=== PATIENT | female | born 1935 | race Caucasian/White ===

== ENCOUNTER 2017-12-05 10:15 | Emergency (ER) | payer MEDICARE ==
[~2017-12-05] VITALS: Ht 157.5 cm; Wt 49.9 kg
[2017-12-05] MEDS ORDERED: PREDNISONE 20 MG TAB PO ONE (10:30)
--- NOTE | 2017-12-05 11:20 | Diagnostic Imaging Report ---
PROCEDURE:X-RAY RIGHT WRIST, COMPLETE COMPARISON:None. INDICATIONS:SWOLLON RT. WRIST, 5TH DIGIT IS LIMP FINDINGS: Extensive degenerative joint space narrowing, subchondral sclerosis, and subchondral cystic changes throughout the entire carpus, to include the distal radius, ulna, and metacarpal bases of the second through fifth digits. No acute, displaced fracture or dislocation. Soft tissues are unremarkable. Background diffuse osteopenia. CONCLUSION: No acute osseous abnormality. Extensive arthritic changes of the carpus as described above. Dictated by: Ashish Montoya M.D. on 12/05/2017 at 11:20 Electronically approved by: Ashish Montoya M.D. on 12/05/2017 at 11:20
[2017-12-05] MEDS ORDERED: MOBIC15 MG PO (12:10)
[2017-12-05] MEDS ORDERED: PREDNISONE20 MG PO (12:10)
[2017-12-05 12:11] VITALS: BP 148/75
== END 2017-12-05 12:18 | disposition home or self-care (01) ==
LOC: ER 10:15
DX: M19.031 Primary osteoarthritis, right wrist (principal); M54.10 Radiculopathy, site unspecified
CPT/HCPCS: 99283

== ENCOUNTER 2018-03-12 04:29 | Observation (INO) | payer MEDICARE ==
[~2018-03-12] VITALS: Ht 157.5 cm; Wt 53.2 kg
[2018-03-12] VITALS (7 sets, daily range): BP systolic 121–156; BP diastolic 72–85
[~2018-03-12 04:29] MED LIST: MOBIC15 MG PO; PREDNISONE20 MG PO
[2018-03-12] MEDS ORDERED: ASPIRIN 81 MG CHEW TAB PO ONE (05:00)
[2018-03-12] MEDS ORDERED: KETOROLAC TROMETHAMINE 30 MG/ML VIAL IV STA (05:09)
[2018-03-12] MEDS ORDERED: NITROGLYCERIN 0.4 MG SUBL SL PRN (06:15)
[2018-03-12] MEDS ORDERED: MORPHINE SULFATE 2 MG/ML SYR IV PRN (06:15)
[2018-03-12] MEDS ORDERED: ONDANSETRON HCL INJ 2 MG/ML VIAL IV PRN (06:15)
[2018-03-12] MEDS ORDERED: SODIUM CHLORIDE FLUSH 10 ML SYR INJ PRN (06:15)
[2018-03-12] MEDS ORDERED: ONDANSETRON HCL 4 MG ORAL DISINTEGRATING TAB SL PRN (07:45)
--- NOTE | 2018-03-12 07:46 | History and Physical ---
PRIMARY CARE PHYSICIAN: None. CHIEF COMPLAINT: Left-sided chest pain. HISTORY OF PRESENT ILLNESS: This 82-year-old woman, with a history of uterine cancer and hypertension, is now developing left-sided chest pain under the breast region that has been ongoing intermittently for the whole day yesterday. Therefore, she went to the urgent care facility and then was sent here for further evaluation and management. She denies any shortness of breath or dizziness. Denies any vision changes. She has not had a stress test in the past. PAST MEDICAL HISTORY 1. Uterine cancer about 15 years ago, status post hysterectomy. 2. Hypertension. PAST SURGICAL HISTORY: Right knee, back surgery, cervical fracture. ALLERGIES: PER ELECTRONIC MEDICAL RECORD. FAMILY HISTORY AND SOCIAL HISTORY: The patient is . Occasional alcohol. No cigarettes or illicits. MEDICATIONS: Per electronic medical record. REVIEW OF SYSTEMS: Denies any dizziness. Denies any fever, chills or sweats. PHYSICAL EXAMINATION VITAL SIGNS: Reviewed. GENERAL: A tired-appearing woman resting in bed. HEENT: Anicteric. Pupils are responsive to light. No oral lesions. CARDIOVASCULAR: Normal S1 and S2. LUNGS: Moderate breath sounds. ABDOMEN: Soft, nontender, nondistended. EXTREMITIES: No edema or calf tenderness. NEUROLOGIC: Alert, oriented times 3, moving all extremities. MUSCULOSKELETAL: Left-sided rib region underneath the breast region is tender to palpation. SKIN: Dry. PSYCHIATRIC: Normal affect. LABS: Reviewed. MEDICATIONS: Reviewed. ASSESSMENT AND PLAN: An 82-year-old woman. 1. Left-sided musculoskeletal chest pain. 2. Hypertension. 3. Compression deformities at the mid and lower thoracic vertebral body region. 4. Prophylaxis: Will use Lovenox and Pepcid. 5. Disposition: Will obtain cardiac enzymes and trend it, obtain lipid panel. The patient's symptoms are likely noncardiac in nature. Will follow up. Job#: [id number]
[2018-03-12] MEDS: FAMOTIDINE 20 MG TAB PO SCH ×2 (07:50→20:49)
[2018-03-12] MEDS: METOPROLOL TARTRATE 25 MG TAB PO SCH ×2 (07:50→18:15)
[2018-03-12 07:51] LABS: CHOL/HDL RATIO 2.5 (3.0-3.6)
[2018-03-12 07:57] LABS: CREATINE KINASE 47 IU/L (29-168)
[2018-03-12] MEDS: ASPIRIN 81 MG ENTERIC COATED PO SCH (09:21)
[2018-03-12 15:35] LABS: CREATINE KINASE 38 IU/L (29-168)
[2018-03-12] MEDS ORDERED: ENOXAPARIN SOD INJ 40 MG/0.4 ML SYR SC SCH (17:00)
[2018-03-13] VITALS: BP 123/76
[2018-03-13 02:30] LABS: CREATINE KINASE 46 IU/L (29-168)
[2018-03-13 05:00] VITALS: BP 136/80
[2018-03-13] MEDS: METOPROLOL TARTRATE 25 MG TAB PO SCH (06:15)
[2018-03-13] MEDS: FAMOTIDINE 20 MG TAB PO SCH (06:23)
[2018-03-13] MEDS ORDERED: FAMOTIDINE20 MG PO (06:27)
[2018-03-13] MEDS ORDERED: ASPIRIN EC81 MG PO (06:27)
[2018-03-13] MEDS ORDERED: LOPRESSOR25 MG PO (06:27)
[2018-03-13] MEDS ORDERED: PRAVASTATIN SOD20 MG PEG (06:27)
[2018-03-13 07:07] LABS: CHOL/HDL RATIO 2.8 (3.0-3.6)
[2018-03-13 07:30] VITALS: BP 151/80
--- NOTE | 2018-03-13 07:42 | Discharge Summary ---
PRINCIPAL DIAGNOSES 1. Musculoskeletal left-sided chest pain. 2. Completion deformity of the mid and lower thoracic vertebral column. 3. Hypertension. SECONDARY DIAGNOSIS: Hypertension. CHIEF COMPLAINT: Left-sided chest discomfort. HISTORY OF PRESENT ILLNESS: An 82-year-old woman with left-sided chest discomfort. Refer to the H and P for further details. HOSPITAL COURSE: Cardiac enzymes were negative times 2. LDL was 117 and triglycerides 49. The patient had normal TSH. She is currently symptom free. She will be discharged home with statin, aspirin, and beta arsenio. She is currently appropriate for discharge. FOLLOWUP: With me in 1 week. Cardiology in 1 week. CONDITION ON DISCHARGE: Stable and improving. JOSEFINA KOENIG MD Job#: [id number] RI
--- NOTE | 2018-03-13 07:44 | Discharge Summary ---
ADDENDUM The echocardiogram showed normal left ventricular ejection fraction. JOSEFINA KOENIG MD Job#: [id number] RI
[2018-03-13] MEDS: ASPIRIN 81 MG ENTERIC COATED PO SCH (08:10)
== END 2018-03-13 08:58 | disposition home or self-care (01) ==
LOC: FSED 04:29 → IMCU 06:24
PROVIDERS: ADMIT Internal Medicine; ATTEND Internal Medicine
DX: R07.89 Other chest pain (principal); I10 Essential (primary) hypertension; Z85.42 Personal history of malignant neoplasm of other parts of uterus; M43.8X4 Other specified deforming dorsopathies, thoracic region
CPT/HCPCS: 36415; 71046; 80053; 80061 ×2; 82550 ×2; 82553 ×2; 84443; 84484 ×2; 85025; 85379; 85610; 93306; 96374; 99284; G0378 ×2; J1650; J1885; J2270; J2405

== ENCOUNTER 2018-07-02 12:47 | Emergency (ER) | payer MEDICARE ==
[~2018-07-02] VITALS: Ht 157.5 cm; Wt 50.3 kg
[~2018-07-02 12:47] MED LIST changes: +ASPIRIN EC81 MG PO; +FAMOTIDINE20 MG PO; +LOPRESSOR25 MG PO; +PRAVASTATIN SOD20 MG PEG
[2018-07-02] MEDS ORDERED: TRAMADOL/APAP 37.5MG-325MG TAB PO PRN (13:15)
[2018-07-02] MEDS ORDERED: TRAMADOL HCL 50 MG TAB PO ONE (13:45)
[2018-07-02] MEDS ORDERED: HYDROCODONE/APAP 5MG-325MG TAB PO ONE (14:00)
--- NOTE | 2018-07-02 14:44 | Diagnostic Imaging Report ---
Examination: CT THORACIS SPINE WITHOUT CONTRAST History: Mid back pain after bathing dog. Comparison studies: None Technique: Sagittal T1 and STIR; axial, sagittal and coronal T2 Intravenous contrast: None. Findings: Alignment: Normal kyphosis. No scoliosis. Thoracic cord: Normal in signal and morphology. The tip of the conus is at T12-L1. Soft tissues: No T2 hyperintense inflammatory changes. Paraspinal muscles: Preserved. No volume loss. Vertebrae: Diffuse osseous demineralization. No acute compression fractures, infection or neoplasm. There is mild (less than 50%) height loss of T6-T10 vertebrae with resultant exaggeration of normal kyphosis. Prior percutaneous cement augmentation of the T11 vertebral body. Degenerative changes: No canal or foraminal stenosis. IMPRESSION: 1. No definite acute compression fracture. 2. Mild height loss of the T6-T10 vertebrae with resultant exaggeration of normal kyphosis. No visible fracture line. 3. Prior percutaneous cement augmentation of the T11 vertebral body. 4. Diffuse osseous demineralization. Signed by: Dr. Bozena Paredes M.D. on 07/02/2018 2:40 PM
[2018-07-02 15:12] VITALS: BP 140/85
== END 2018-07-02 15:15 | disposition home or self-care (01) ==
LOC: FSED 12:47
DX: M54.6 Pain in thoracic spine (principal); S23.3XXA Sprain of ligaments of thoracic spine, initial encounter; X50.9XXA Other and unspecified overexertion or strenuous movements or postures, initial encounter; Y92.008 Other place in unspecified non-institutional (private) residence as the place of occurrence of the external cause
CPT/HCPCS: 72128; 99283

== ENCOUNTER 2018-12-16 14:33 | Inpatient (IN) | payer MEDICARE, OTHER ==
[~2018-12-16] VITALS: Ht 157.5 cm; Wt 52.6 kg
--- OUTSIDE RECORDS SUMMARY | 2018-12-16 14:36 | XMS REPORT | Continuity of Care Document ---
Author Author [facility] Interface Address Unknown Phone Unavailable Problems Problem Status Onset Date Classification Date Reported Comments Source Medications Medication Details Route Status Patient Instructions Ordering Provider Order Date Source Aspirin (Aspirin Ec) 81 Mg Tablet.dr Every Morning Active [facility] 03/13/2018 [facility] Famotidine 20 Mg Tab Every 12 Hours Active [facility] 03/13/2018 [facility] Metoprolol Tartrate (Lopressor) 25 Mg Tab Every 12 Hours Active [facility] 03/13/2018 [facility] Pravastatin Sodium 20 Mg Tablet Bedtime Active [facility] 03/13/2018 [facility] Meloxicam (Mobic) 15 Mg Tablet Daily Active [facility] Prednisone 20 Mg Tab Daily Active [facility] Allergies, Adverse Reactions, Alerts Substance Category Reaction Severity Reaction type Status Date Reported Comments Source Penicillin RASH Intermediate Allergy to Substance Active 12/05/2017 [facility] Immunizations Immunization Date Given Site Status Last Updated Comments Source Results Order Name Results Value Reference Range Date Interpretation Comments Source Serum or plasma cholesterol in HDL measurement (mass/volume) Serum or plasma cholesterol in HDL measurement (mass/volume) 71 40 - 60 03/13/2018 [facility] Serum or plasma cholesterol in LDL measurement (mass/volume) Serum or plasma cholesterol in LDL measurement (mass/volume) 114 60 - 130 03/13/2018 [facility] Serum or plasma cholesterol measurement (mass/volume) Serum or plasma cholesterol measurement (mass/volume) 199 0 - 199 03/13/2018 [facility] Serum or plasma total cholesterol/cholesterol in HDL mass ratio Serum or plasma total cholesterol/cholesterol in HDL mass ratio 2.8 3.0 - 3.6 03/13/2018 [facility] Serum or plasma triglyceride measurement (mass/volume) Serum or plasma triglyceride measurement (mass/volume) 71 0 - 149 03/13/2018 [facility] Serum or plasma creatine kinase MB measurement (mass/volume) Serum or plasma creatine kinase MB measurement (mass/volume) 1.70 0 - 5.0 03/13/2018 [facility] Serum or plasma creatine kinase measurement (enzymatic activity/volume) Serum or plasma creatine kinase measurement (enzymatic activity/volume) 46 29 - 168 03/13/2018 [facility] Troponin I measurement by highly sensitive enzyme immunoassay Troponin I measurement by highly sensitive enzyme immunoassay null 0 - 0.300 03/13/2018 [facility] Serum or plasma thyrotropin measurement by detection limit <=0.005 miu/l (units/volume) Serum or plasma thyrotropin measurement by detection limit <=0.005 miu/l (units/volume) 2.231 0.350 - 4.940 03/12/2018 [facility] Vital Signs Vital Sign Value Date Comments Source Encounters Location Location Details Encounter Type Encounter Number Reason For Visit Attending Provider ADM Date DC Date Status Source Departed Emergency Room [id number] DANIEL RIVERA MD 12/05/2017 12/05/2017 [facility] Discharged Inpatient (obs) [id number] JOSEFINA KOENIG MD 03/12/2018 03/13/2018 [facility] Departed Emergency Room [id number] UZMA ROY MD 07/02/2018 07/02/2018 [facility] Procedures Procedure Code Date Perfomer Comments Source
[2018-12-16] MEDS ORDERED: NITROGLYCERIN 2% OINT 1 GM PKT TOP ONE (14:45)
[2018-12-16 15:17] LABS: BASOPHILS # (AUTO) 0.1 (0.0-0.1); BASOPHILS % 0.7 % (0.0-1.0); EOSINOPHILS # (AUTO) 0.1 (0.0-0.4); HEMATOCRIT 40.8 % (34.2-44.1); HEMOGLOBIN 13.7 g/dL (12.0-16.0); LYMPHOCYTES # (AUTO) 1.5 (1.0-3.2); LYMPHOCYTES % 22.1 % (18.0-39.1); MEAN CORPUSCULAR HEMOGLOBIN 33.2 pg (28-32); MEAN CORPUSCULAR HGB CONC 33.6 g/dL (31-35); MEAN CORPUSCULAR VOLUME 98.8 fL (81-99); MONOCYTES # (AUTO) 0.4 (0.2-0.8); MONOCYTES % 6.3 % (4.4-11.3); NEUTROPHILS # (AUTO) 4.7 (2.1-6.9); NEUTROPHILS % 69.6 % (38.7-80.0); PLATELET COUNT 254 x10e3/uL (140-360); RED BLOOD COUNT 4.13 x10e6/uL (3.6-5.1); RED CELL DISTRIBUTION WIDTH 11.5 % (11.7-14.4)
[2018-12-16 15:35] LABS: BILIRUBIN,URINE NEGATIVE (NEGATIVE); CLARITY,URINE SL CLOUDY (CLEAR); COLOR,URINE YELLOW (YELLOW); KETONES,URINE TRACE (NEGATIVE); LEUKOCYTE ESTERASE ,URINE NEGATIVE (NEGATIVE); NITRITE,URINE NEGATIVE (NEGATIVE); PROTEIN,URINE DIPSTICK TRACE (NEGATIVE); URINE UROBILINOGEN 0.2 mg/dL (0.2 - 1)
[2018-12-16 15:49] LABS: BACTERIA,URINE MANY /HPF; EPITHELIAL CELLS,URINE MANY /LPF; WBC,URINE (MAN) 0-5 /HPF (0-5)
--- NOTE | 2018-12-16 16:28 | Diagnostic Imaging Report ---
EXAMINATION: CHEST SINGLE (PORTABLE) INDICATION: Heart problems. Left arm numbness. COMPARISON: None FINDINGS: AP view TUBES and LINES: None. LUNGS: Lungs are well inflated. Mild chronic lung changes. Lungs are otherwise clear. There is no evidence of pneumonia or pulmonary edema. PLEURA: No pleural effusion or pneumothorax. HEART AND MEDIASTINUM: Cardiac size is mildly enlarged. There are atherosclerotic calcifications within the aorta. BONES AND SOFT TISSUES: No acute osseous lesion. Vertebroplasty material in the 3 thoracic spine. Soft tissues are unremarkable. UPPER ABDOMEN: No free air under the diaphragm. IMPRESSION: No acute thoracic abnormality. Signed by: Dr. Rene Torres M.D. on 12/16/2018 4:25 PM
--- NOTE | 2018-12-16 16:31 | Diagnostic Imaging Report ---
CT BRAIN WO HISTORY: Left arm numbness COMPARISON: None. Technique: Noncontrast axial scans were obtained from skull base to the vertex. Coronal and sagittal reconstructions obtained from the axial data. One or more of the following dose reduction techniques were used: Automated exposure control, adjustment of the mA and/or kV according to patient size, and/or utilization of iterative reconstruction technique. DISCUSSION: Scalp/Skull: Unremarkable. Brain sulci: Prominent. Ventricles: Compensatory dilatation. Extra-axial spaces: No masses or fluid collections. Carotid siphon and vertebral artery calcifications are present. Parenchyma: Mild/moderate bilateral deep white matter hypodensity is likely chronic microvascular ischemic change. Otherwise, no masses, hemorrhage, or large vascular territory acute infarct. Dural sinuses: No abnormal densities. Sellar/Suprasellar region: Intact. Skull base: Intact. Incidental findings: Bilateral maxillary antrostomy, uncinectomy, middle turbinectomy, and ethmoidectomy changes are present. There is mild mucosal thickening along the maxillary antrostomies. IMPRESSION: 1. No acute intracranial abnormalities. 2. Mild to moderate supratentorial chronic microvascular ischemic change. Generalized cerebral volume loss. Signed by: Dr. Jered Lisa M.D. on 12/16/2018 4:28 PM
[2018-12-16] MEDS: ASPIRIN 325 MG TAB PO ONE ×2 (16:41→17:22)
[2018-12-16 17:14] LABS: INR 0.93
[2018-12-16 17:15] LABS: PARTIAL THROMBOPLASTIN TIME 29.7 seconds (23.8-35.5)
[2018-12-16 17:21] LABS: ALBUMIN 4.4 g/dL (3.5-5.0); ALBUMIN/GLOBULIN RATIO 1.1 (0.8-2.0); ANION GAP 16.9 mmol/L (8-16); CALCIUM 10.6 mg/dL (8.4-10.2); CREATININE, SERUM 0.92 mg/dL (0.57-1.11); POTASSIUM 3.9 mmol/L (3.5-5.1)
[2018-12-16] MEDS ORDERED: ONDANSETRON HCL INJ 2MG/ML 2ML 2 MG/ML VIAL IV STA (17:37)
[2018-12-16 17:41] LABS: CREATINE KINASE MB 2.5 ng/mL (0-5.0); THYROID STIMULATING HORMONE 1.397 uIU/mL (0.350-4.940)
[2018-12-16] MEDS ORDERED: MORPHINE SULFATE INJ 4 MG/ML INJ 1ML IV NR (17:45)
[2018-12-16] MEDS ORDERED: ENOXAPARIN SOD INJ 60 MG/0.6 ML SYR SC NR (17:45)
[2018-12-16] MEDS ORDERED: ENOXAPARIN SODIUM INJ 100 MG/ML SYR SC ONE (17:45)
[2018-12-16] MEDS ORDERED: MORPHINE SULFATE 5 MG/ML VIAL IV ONE (17:45)
[2018-12-16] MEDS ORDERED: ASPIRIN 81 MG CHEW TAB PO ONE (18:00)
[2018-12-16] MEDS ORDERED: MORPHINE SULFATE INJ 4 MG/ML INJ 1ML IV PRN (18:00)
[2018-12-16] MEDS ORDERED: ONDANSETRON HCL INJ 2MG/ML 2ML 2 MG/ML VIAL IV PRN (18:00)
[2018-12-16] MEDS ORDERED: NITROGLYCERIN 0.4 MG SUBL SL PRN (18:00)
[2018-12-16] MEDS ORDERED: SODIUM CHLORIDE FLUSH 10 ML SYR INJ PRN (18:00)
[2018-12-16] MEDS ORDERED: CLOPIDOGREL BISULFATE 75 MG TAB PO ONE (18:10)
--- OUTSIDE RECORDS SUMMARY | 2018-12-16 18:27 | XMS REPORT | Summary of Care ---
Author Author SHEILA Singleton, SHARAN Organization Unknown Address Unknown Phone Unavailable Care Team Providers Care Inspector Chief Name Role Phone NICOLA Car, SUDEEP Unavailable Unavailable SHARIFA CHRISTIANSEN Unavailable Unavailable SHEILA Singleton, SHARAN Unavailable Unavailable ALMAS Car, MOUSTAFTripp Unavailable Unavailable SHEILA ROBERTS MS, SHARAN Unavailable Unavailable NICOLA LO MS, SUDEEP Unavailable Unavailable Jose Palumbo MD Unavailable Unavailable QUINCY LO MS, ROWAN Rodriguez Unavailable Unavailable Unavailable Unavailable Functional Status Name Dates Details Functional status health issues are not documented Status: Name Dates Details Cognitive status health issues are not documented Status: Problems Name Dates Details 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, M15.9) Status: Active Swelling of joint of left wrist (719.03, M25.432) Status: Active Chronic fatigue (780.79, R53.82) Status: Active Postmenopausal state (V49.81, Z78.0) Status: Active Chronic pain of left wrist (719.43, M25.532) Status: Active On methotrexate therapy (V58.69, Z79.899) Status: Active Back muscle spasm (724.8, M62.830) Status: Active History of vertebral fracture (V15.51, Z87.81) Status: Resolved Myofascial pain (729.1, M79.18) Status: Active Encounter for monitoring leflunomide therapy (V58.83, Z51.81) Status: Active Lumbar spondylosis (721.3, M47.816) Status: Active Lumbar radicular pain (724.4, M54.16) Status: Active Thoracolumbar back pain (724.2, M54.5) Status: Active Closed stable burst fracture of eighth thoracic vertebra, initial encounter (805.2, S22.061A) Status: Active Closed wedge compression fracture of eighth thoracic vertebra, initial encounter (805.2, S22.060A) Status: Active Screening for endocrine, nutritional, metabolic and immunity disorder (V77.99, Z13.29) Status: Active Status post kyphoplasty (V45.89, Z98.890) Status: Active 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 Quantity: 90 SHEILA D.OValencia, SHARAN * Start : 03-Mar-2018 Active Vitamin B-12 1000 MCG Oral Tablet TAKE 1 TABLET DAILY DIRECTED. * Refills: 0 * Start : 02-Apr-2018 Active Vitamin D3 Maximum Strength 5000 UNIT Oral Capsule TAKE 2 CAPSULE DAILY * Refills: 0 * Start : 02-Apr-2018 Active Calcium 500 MG Oral Tablet Chewable TAKE 1 TABLET DAILY * Refills: 0 * Start : 02-Apr-2018 Active Zoledronic Acid 5 MG/100ML Intravenous Solution INFUSE 5 MG INTRAVENOUSLY OVER 15 MINUTES DIRECTED. * Quantity: 1 Refills: 0 SUDEEP PETERSEN M.D. * Start : 05-Jun-2018 Active 100 ML Bag Hydroxychloroquine Sulfate 200 MG Oral Tablet TAKE 1 TABLET DAILY * Quantity: 90 Refills: 0 SUDEEP PETERSEN M.D. * Start : 07-Aug-2018 Active Acetaminophen-Codeine #3 300-30 MG Oral Tablet TAKE 1 TABLET EVERY 6 HOURS NEEDED FOR PAIN. * Quantity: 120 Refills: 0 CANDIE COBURN M.D. * Start : 19-Aug-2018 Active traMADol HCl - 50 MG Oral Tablet TAKE 1 TABLET EVERY 8 HOURS NEEDED. * Quantity: 40 Refills: 0 SHARIFA CHRISTIANSEN * Start : 26-Sep-2018 Active Forteo 600 MCG/2.4ML Subcutaneous Solution INJECT 20 MCG. SUBCUTANEOUSLY ONCE DAILY DIRECTED. * Refills: 0 * Start : 18-Nov-2018 Active 2.4 ML Pen Allergies and Adverse Reactions Name Dates Details Penicillins (Allergy) Status: Active Past Medical History Name Dates Details History of cancer of uterus (V10.42, Z85.42) Status: Resolved History of cataract (V12.49, Z86.69) Status: Resolved History of vertebral fracture (V15.51, Z87.81) Status: Resolved Procedures Procedure Dates Details [QLH] CALCIUM, IONIZED Date: 19-Nov-2018 [Q] LIPID PANEL WITH REFLEX TO DIRECT LDL Date: 01-Dec-2018 History of Total Knee Replacement Right Completed History of Hysterectomy Total, With Removal Of Both Tubes And Both Ovaries Completed History of Spinal surgery Completed History of Wrist surgery Completed History of Carpal tunnel surgery Completed Immunization Name Dates Details Immunizations not documented Family History Name Dates Details Family history of malignant neoplasm (V16.9, Z80.9) Status: Active Name Dates Details Family history of osteoporosis (V17.81, Z82.62) Status: Active Family history of diabetes mellitus (V18.0, Z83.3) Status: Active Name Dates Details Family history of cardiac disorder (V17.49, Z82.49) Status: Active Family history of cerebrovascular accident (CVA) (V17.1, Z82.3) Status: Active Family history of hypertension (V17.49, Z82.49) Status: Active Family history of asthma (V17.5, Z82.5) Status: Active Family history of diabetes mellitus (V18.0, Z83.3) Status: Active Name Dates Details Family history of hypertension (V17.49, Z82.49) Status: Active Family history of asthma (V17.5, Z82.5) Status: Active Family history of diabetes mellitus (V18.0, Z83.3) Status: Active Social History Name Dates Details - Status: Name Dates Details Never smoker Vital Signs Date Test Result Details [id number] BP Systolic 175 mm[Hg] Status: Comments: Location: RUE; Position: Sitting BP Diastolic 92 mm[Hg] Status: Comments: Location: RUE; Position: Sitting Weight 104 lb Status: Body Mass Index Calculated 19.02 kg/m2 Status: Height 62 in Status: Temperature 98.3 f Status: Comments: Method: Temporal Respiration Rate 16 /min Status: Heart Rate 70 /min Status: Physical Findings 1 Status: Comments: PHQ-9 Adult Depression Screening Physical Findings 0 Status: Comments: Alcohol Screen - How many times in the past yr have you had 5 (for M) or 4 (for F) or 4 (for all > 65yrs) or more drinks in a day? :59 BP Systolic 165 mm[Hg] Status: Comments: Location: RUE; Position: Sitting BP Diastolic 72 mm[Hg] Status: Comments: Location: RUE; Position: Sitting Weight 106 lb Status: Body Mass Index Calculated 19.39 kg/m2 Status: Temperature 98.1 f Status: Comments: Method: Oral Respiration Rate 16 /min Status: Heart Rate 78 /min Status: Body Surface Area Calculated 1.46 m2 Status: Results Date Description Value Details :41 [U] XRAY SPINE THORACIC 3 [id number] [id number] XR SPINE THORACIC 3 VWS Images acquired, not reported on this accession number. :18 [QLH] CMP W/EGFR Glucose 99 mg/dL Range: 65-99 BUN 16 mg/dL Range: 8-27 Creatinine 0.73 mg/dL Range: 0.57-1.00 eGFR If NonAfricn Am 77 mL/min/1.7 Range: >59 eGFR If Africn Am 89 mL/min/1.7 Range: >59 BUN/Creatinine Ratio 22 Range: 12-28 Sodium, Serum 142 mmol/L Range: 134-144 Potassium 4.0 mmol/L Range: 3.5-5.2 Chloride 100 mmol/L Range: 96-106 Carbon Dioxide, Total 26 mmol/L Range: 20-29 Calcium, Serum 11.0 mg/dL (Above high threshold) Range: 8.7-10.3 Protein, Total 7.3 g/dL Range: 6.0-8.5 Albumin 4.8 g/dL (Above high threshold) Range: 3.5-4.7 Globalulin, Total 2.5 g/dL Range: 1.5-4.5 A/G Ratio 1.9 Range: 1.2-2.2 Bilirubin, Total <0.2 mg/dL Range: 0.0-1.2 Alkaline Phosphatase 83 {IU/L} Range: 39-117 AST (SGOT) 18 {IU/L} Range: 0-40 ALT (SGPT) 12 {IU/L} Range: 0-32 [id number] [[facility]] CBC (INCLUDES DIFF/PLT) WBC 8.0 {x10E3/uL} Range: 3.4-10.8 RBC 3.47 {x10E6/uL} (Below low threshold) Range: 3.77-5.28 Hemoglobin 11.6 g/dL Range: 11.1-15.9 Hematocrit 34.4 % Range: 34.0-46.6 MCV 99 fL (Above high threshold) Range: 79-97 MCH 33.4 pg (Above high threshold) Range: 26.6-33.0 MCHC 33.7 g/dL Range: 31.5-35.7 RDW 12.4 % Range: 12.3-15.4 Platelets 259 {x10E3/uL} Range: 150-379 Neutrophils 72 % Range: Not Estab. Lymphs 19 % Range: Not Estab. Monocytes 8 % Range: Not Estab. Eos 1 % Range: Not Estab. Basos 0 % Range: Not Estab. Immature Cells Neutrophils (Absolute) 5.7 {x10E3/uL} Range: 1.4-7.0 Lymphs (Absolute) 1.5 {x10E3/uL} Range: 0.7-3.1 Monocytes(Absolute) 0.7 {x10E3/uL} Range: 0.1-0.9 Eos (Absolute) 0.1 {x10E3/uL} Range: 0.0-0.4 Baso (Absolute) 0.0 {x10E3/uL} Range: 0.0-0.2 Immature Granulocytes 0 % Range: Not Estab. Immature Grans (Abs) 0.0 {x10E3/uL} Range: 0.0-0.1 NRBC Hematology Comments: Plan of Care Name Dates Details Planned Observations Planned Goals not documented Planned Encounters Appointment; SUDEEP PETERSEN M.D. On: 17-Feb-2019 14:00 Appointment; SHARIFA CÁRDENAS P.A. On: 20-Feb-2019 10:30 Interventions Provided Medication Changes* [id number]-FLTO 5-160-25 MG Oral Tablet - Renew Labs/Procedures/Imaging* [QH] LIPID PANEL WITH REFLEX TO DIRECT LDL; To Be Done: 01 Dec 2018 Instructions* Patient Specific Education Given; Done: 01 Dec 2018 Plan* HTN - stable. Continue Gtfjxmcdlx-Rvhxftlxp-QSBK. Discussed that it was certain batches that were recalled. * Elevated Creatinine - stable. Contiue to monitor * Osteoporosis/Lumbar spondylosis - stable. Continue Forteo, Zoledronic acid. DIscussed Vitamin D 2000 iu Per da * Follow-up in 6 months, sooner if needed Instructions Name Dates Details Instructions not documented Encounters Appointment; SUDEEP PETERSEN M.D. Encounter Diagnosis: Problem not documented On: 03-Mar-2018 8:00 Appointment; SUDEEP PETERSEN M.D. Encounter Diagnosis: Problem not documented On: 02-Apr-2018 14:30 Appointment; SUDEEP PETERSEN M.D. Encounter Diagnosis: Problem not documented On: 02-Jun-2018 14:30 Appointment; SUDEEP PETERSEN M.D. Encounter Diagnosis: Problem not documented On: 08-Jul-2018 14:30 Appointment; CANDIE COBURN M.D. Encounter Diagnosis: Problem not documented On: 24-Jul-2018 10:30 Appointment; SUDEEP PETERSEN M.D. Encounter Diagnosis: Problem not documented On: 07-Aug-2018 15:00 Appointment; CANDIE COBURN M.D. Encounter Diagnosis: Problem not documented On: 19-Aug-2018 14:30 Appointment; ROWAN MATHEW M.D. Encounter Diagnosis: Problem not documented On: 26-Aug-2018 10:00 Appointment; ROWAN MATHEW M.D. Encounter Diagnosis: Problem not documented On: 15-Sep-2018 7:00 Appointment; SHARIFA CÁRDENAS P.A. Encounter Diagnosis: Problem not documented On: 26-Sep-2018 13:30 Appointment; SANJAY HARVEY P.A. Encounter Diagnosis: Problem not documented On: 01-Oct-2018 12:20 Appointment; ROWAN MATHEW M.D. Encounter Diagnosis: Problem not documented On: 03-Oct-2018 7:00 Appointment; SHARIFA CÁRDENAS P.A. Encounter Diagnosis: Problem not documented On: 17-Oct-2018 10:30 Appointment; SANJAY HARVEY P.A. Encounter Diagnosis: Problem not documented On: 05-Nov-2018 15:00 Appointment; SUDEEP PETERSEN M.D. Encounter Diagnosis: Problem not documented On: 18-Nov-2018 14:00 Appointment; SHARAN SOSA D.O. Encounter Diagnosis: Problem not documented On: 01-Dec-2018 14:00
--- OUTSIDE RECORDS SUMMARY | 2018-12-16 18:27 | XMS REPORT | Clinical Summary ---
Author Author MELVA [facility] Address Unknown Phone Unavailable Care Team Providers Care Rug Scratcher Name Role Phone Sharpless PCP Allergies Comments Active Allergy Reactions Severity Noted Date Penicillins Hives 12/19/2017 Medications End Date Status Medication Sig Dispensed Refills Start Date Active zbLLXBFguz-dqnbxybuy-mlzi Take 1 tablet 0 iazid 10-320-25 mg Tab by mouth daily. Active ALPRAZolam (XANAX) 0.25 Take 0.25 mg 0 MG tablet by mouth every night as needed for Anxiety. Active cholecalciferol, vitamin Take 2,000 0 D3, 2,000 unit Tab Units by mouth daily Takes 3 tabs . Active calcium carbonate Take 600 mg 0 (OS-EDMOND) 600 mg calcium by mouth (1,500 mg) Tab daily. Active multivitamin per tablet Take 1 tablet 0 by mouth daily. 12/19/2017 Discontinued predniSONE (DELTASONE) 20 Take 20 mg by 0 MG tablet mouth daily. Active Problems Problem Noted Date Extensor tendon rupture of hand, right, initial encounter 01/07/2018 Encounters Care Team Description Date Type Specialty Norbert Hayden III TRANSFER,TENDON WRIST 01/07/2018 Surgery Vicente Patel MD 01/07/2018 Anesthesia Event Norbert Hayden III Extensor tendon rupture of hand, right, initial encounter (Primary Dx) 01/07/2018 Hospital Encounter Norbert Hayden III 12/19/2017 Hospital Pre-Admission Testing Encounter 12/19/2017 Orders Only General Internal Medicine after 12/15/2017 Social History Date Tobacco Use Types Packs/Day Years Used Never Smoker Smokeless Tobacco: Never Used Alcohol Use Drinks/Week oz/Week Comments Yes 7 Glasses of 4.2 red wine wine Sex Assigned at Date Recorded Not on file Industry Job Start Date Occupation Not on file Not on file Not on file Travel End Travel History Travel Start No recent travel history available. Last Filed Vital Signs Time Taken Vital Sign Reading 01/07/2018 11:30 AM CDT Blood Pressure 110/66 01/07/2018 11:15 AM CDT Pulse 88 01/07/2018 10:31 AM CDT Temperature 37.2 C (98.9 F) 01/07/2018 11:30 AM CDT Respiratory Rate 16 01/07/2018 10:46 AM CDT Oxygen Saturation 100% - Inhaled Oxygen - Concentration 01/07/2018 7:40 AM CDT Weight 50.4 kg (111 lb 1.6 oz) 01/07/2018 7:40 AM CDT Height 157.5 cm (5' 2") 01/07/2018 7:40 AM CDT Body Mass Index 20.32 Plan of Treatment Not on file Procedures Comments Procedure Name Priority Date/Time Associated Diagnosis TISSUE EXAM AP Routine 01/07/2018 8:51 AM CDT TRANSFER,TENDON WRIST 01/07/2018 Extensor tendon rupture 8:35 AM CDT of hand, right, initial encounter Special Needs (GENERAL W/LMA) BASIC METABOLIC PANEL (7) Routine 12/19/2017 4:36 PM [employer]ER[employer] SUPERVISOR HEMOGLOBIN Routine 12/19/2017 4:36 PM [employer] SUPERVISOR ECG 12-LEAD Routine 12/19/2017 4:33 PM [employer] SUPERVISOR Procedure Note - Interface, External Ris In - 12/19/2017 4:39 PM [employer] SUPERVISOR Ventricula r Rate 69 BPM Atrial Rate 69 BPM P-R Interval 224 ms QRS Duration 76 ms Q-T Interval 374 ms QTC Calculatio n(Bazett) 400 ms P [place] 83 degrees R [place] -18 degrees T [place] 37 degrees Sinus rhythm with marked sinus arrhythmia with 1st degree A-V block Otherwise normal ECG No previous ECGs available ECG 12-LEAD Routine 12/19/2017 4:33 PM [employer] SUPERVISOR after 12/15/2017 Results * Tissue Exam (01/07/2018 8:51 AM CDT) Case Report Surgical Pathology [facility] Report [facility] Case: [id number] Authorizing Provider:Norbert Hayden Collected: 01/07/2018 0851 [facility] Received: 01/07/2018 1135 SERVICES Pathologist: Nick Cook MD Specimen:Wrist, Right, Synovitis.Right dorsal hand and wrist DIAGNOSIS SYNOVIUM, RIGHT DORSAL HAND [facility] AND WRIST, EXCISION: [facility] - SYNOVIAL TISSUE WITH MILD LYMPHOPLASMACYTIC INFILTRATES AND FOCAL ACUTE INFLAMMATION, FIBRINOUS EXUDATE, AND REACTIVE HYPERPLASTIC CHANGES (SEE COMMENT) Signing Pathologist Direct Phone Line: [phone] COMMENT The mild lymphoplasmacytic [facility] infiltrates and reactive [facility] synovial hyperplastic changes are features suggestive of rheumatoid inflammation. Clinical correlation is recommended. CPT Code(s) 87908 [facility] CLINICAL HISTORY Extensor tendon rupture of [facility] right hand [facility] SPECIMEN SOURCE Right dorsal hand and wrist [facility] synovitis [facility] GROSS DESCRIPTION The specimen is received in a [facility] formalin-filled container and [facility] labeled with the patient's information and labeled "right wrist synovitis" and consists of multiple fragments of decker soft tissue measuring 2.5 x 2 x 1 cm in aggregate. The specimen is entirely submitted A1 and A2. CG/pl MICROSCOPIC DESCRIPTION Performed. [facility] Specimen Tissue - Wrist, Right Performing Organization Address City/[facility]/Zipcode Phone Number [phone] [place] [address] [facility] * Hemoglobin (12/19/2017 4:36 PM [employer] SUPERVISOR) Hemoglobin 12.2 11.2 - 15.7 GM/DL [facility] Specimen Blood Performing Organization Address City/[facility]/Zipcode Phone Number [facility] [address] [place] [address] [facility] * Basic Metabolic Panel (12/19/2017 4:36 PM [employer] SUPERVISOR) Sodium 139 136 - 145 meq/L [facility] Potassium 4.3 3.5 - 5.1 meq/L [facility] Chloride 103 98 - 107 meq/L [facility] CO2 26 22 - 29 meq/L [facility] BUN 17 7 - 21 mg/dL [facility] Creatinine 1.15 0.57 - 1.25 mg/dL [facility] Glucose 112 (H) 70 - 105 mg/dL [facility] Calcium 10.0 8.4 - 10.2 mg/dL [facility] EGFR 45Comment: ESTIMATED GFR IS mL/min/1.73 sq m [facility] NOT ACCURATE CREATININE [facility] CLEARANCE IN PREDICTING GLOMERULAR FILTRATION RATE. ESTIMATED GFR IS NOT APPLICABLE FOR DIALYSIS PATIENTS. Specimen Blood Performing Organization Address City/State/Zipcode Phone Number [facility] [address] [place] [address] [facility] * ECG 12 lead (12/19/2017 4:33 PM [employer] SUPERVISOR) Narrative Performed At Ventricular Rate 69 BPM GE MUSE Atrial Rate 69 BPM P-R Interval 224 ms QRS Duration 76 ms Q-T Interval 374 ms QTC Calculation(Bazett) 400 ms P [place] 83 degrees R [place] -18 degrees T [place] 37 degrees Sinus rhythm with marked sinus arrhythmia with 1st degree A-V block Otherwise normal ECG No previous ECGs available Confirmed by MD GEE PABLO ([id number]) on 12/20/2017 4:43:33 PM Procedure Note Interface, External Ris In - 12/20/2017 4:43 PM [employer] SUPERVISOR Ventricular Rate 69 BPM Atrial Rate 69 BPM P-R Interval 224 ms QRS Duration 76 ms Q-T Interval 374 ms QTC Calculation(Bazett) 400 ms P [place] 83 degrees R [place] -18 degrees T [place] 37 degrees Sinus rhythm with marked sinus arrhythmia with 1st degree A-V block Otherwise normal ECG No previous ECGs available Confirmed by MD GEE PABLO ([id number]) on 12/20/2017 4:43:33 PM Performing Organization Address City/State/Zipcode Phone Number [employer] MUSE after 12/15/2017 Insurance Payer Benefit Subscriber ID Type Phone Address Plan / Group CARE IMPROVEMENT MEDICARE CARE xxxxxxxxx [facility] Advance Directives For more information, please contact: [facility] [address] [place] [address] Date Inactivated Comments Code Status Date Activated 01/07/2018 2:27 PM Full Code 01/07/2018 7:36 AM This code status was determined by: Patient
--- OUTSIDE RECORDS SUMMARY | 2018-12-16 18:27 | XMS REPORT ---
Author Author [facility] Address Unknown Phone Unavailable Care Team Providers Care Blueprint Cutter Name Role Phone Tripp LIU Unavailable Unavailable Mehul ROY Unavailable Unavailable USHA BO Unavailable Unavailable NICOLEBhumi FROST Unavailable Unavailable Payers Payer Name Policy Type Policy Number Effective Date Expiration Date Problems This patient has no known problems. Allergies, Adverse Reactions, Alerts Allergy Name Allergy Type Status Severity Reaction(s) Onset Date Inactive Date Treating Clinician Comments Penicillins DA Active PR 2013-08-02 00:00:00 Medications This patient has no known medications. Results Test Description Test Time Test Comments Text Results Atomic Results Result Comments CHEST SINGLE (PORTABLE) 2018-12-16 16:24:00 [facility] [address] [address] Patient Name: ERLIN ELIAS MR #: [id number] : 1935 Age/Sex: 83/F Req #: [id number] Adm Physician: Ordered by: PATTI DALY SCRAP WHEELER Report #: [id number] Location: ER Room/Bed: Procedure: [id number] DX/CHEST SINGLE (PORTABLE) Exam Date: 12/16/18 Exam Time: 1550 REPORT STATUS: Signed EXAMINATION: CHEST SINGLE (PORTABLE) INDICA TION: Heart problems. Left arm numbness. COMPARISON: None FINDINGS: AP view TUBES and LINES: None. LUNGS: Lungs are well inflated. Mild chronic lung changes. Lungs are otherwise clear. There is no evidence of pneumonia or pulmonary edema. PLEURA: No pleural effusion or pneumothorax. HEART AND MEDIASTINUM: Cardiac size is mildly enlarged. There are atherosclerotic calcifications within the aorta. BONES AND SOFT TISSUES: No acute osseous lesion. Vertebroplasty material in the 3 thoracic spine. Soft tissues are unremarkable. UPPER ABDOMEN: No free air under the diaphragm. IMPRESSION: No acute thoracic abnormality. Signed by: Dr. Rene Santos M.D. on 12/16/2018 4:25 PM Dictated By: RENE SANTOS MD 24 Transcribed By: MARSHAL on 12/16/181624 COPY TO: PATTI DALY NP CT BRAIN WO 2018-12-16 16:24:00 [address] [address] Patient Name: ERLIN ELIAS MR #: [id number] : 1935 Age/Sex: 83/F Req #: [id number] Adm Physician: Ordered by: PATTI DALY SCRAP WHEELER Report #: [id number] Location: ER Room/Bed: Procedure: [id number] CT/CT BRAIN WO Exam Date: 12/16/18 Exam Time: 1550 REPORT STATUS: Signed CT BRAIN WO HISTORY: Left arm numbness COMPARISON: None. Technique: Noncontrast axial scans were obtained from skull base to the vertex. Coronal and sagittal reconstructions obtained from the axial data. One or more of the following dose reduction techniques were used: Automated exposure control, adjustment of the mA and/or kV according to patient size, and/or utilization of iterative reconstruction technique. DISCUSSION: Scalp/Skull: Unremarkable. Brain sulci: Prominent. Ventricles: Compensatory dilatation. Extra-axial spaces: No masses or fluid collections. Carotid siphon and vertebral artery calcifications are present. Parenchyma: Mild/moderate bilateral deep white matter hypodensity is likely chronic microvascular ischemic change. Otherwise, no masses, hemorrhage, or large vascular territory acute infarct. Dural sinuses: No abnormal densities. Sellar/Suprasellar region: Intact. Skull base: Intact. Incidental findings: Bilateral maxillary antrostomy, uncinectomy, middle turbinectomy, and ethmoidectomy changes are present. There is mild mucosal thickening along the maxillary antrostomies. IMPRESSION: 1. No acute intracranial abnormalities. 2. Mild to moderate supratentorial chronic microvascular ischemic change. Generalized cerebral volume loss. Signed by: Dr. Jered Lisa M.D. on 12/16/2018 4:28 PM Dictated By: JERED LSIA MD 27 Transcribed By: MARSHAL on 12/16/181627 COPY TO: PATTI DALY NP CT THORACIS SPINE -[facility] 2018-07-02 14:36:00 [address] [address] Patient Name: ERLIN ELIAS MR #: [id number] : 1935 Age/Sex: 82/F Req #: [id number] Adm Physician: Ordered by: UZMA ROY MD Report #: [id number] Location: [facility] Room/Bed: Procedure: [id number] HOPD/CT THORACIS SPINE -[facility] Exam Date: 07/02/18 Exam Time: 1325 REPORT STATUS: Signed ADDENDUM #1 Technique: Axial images were reformatted obtained through the thoracic spine. Coronal and sagittal reconstructions obtained from the axial data. Dose modulation, iterative reconstruction, and/or weight based adjustment of the mA/kV was utilized to reduce the radiation dose to as low as reasonably achievable. Signed by: Dr. Yonathan Paredes M.D. on 07/17/2018 7:38 AM ORIGINAL REPORT Examination: CT THORACIS SPINE WITHOUT CONTRAST History: Mid back pain after bathing dog. Comparison studies: None Technique: Sagittal T1 and STIR; axial, sagittal and coronal T2 Intravenous contrast: None. Findings: Alignment: Normal kyphosis. No scoliosis. Thoracic cord: Normal in signal and morphology. The tip of the conus is at T12 -L1. Soft tissues: No T2 hyperintense inflammatory changes. Paraspinal muscles: Preserved. No volume loss. Vertebrae: Diffuse osseous demineralization. No acute compression fractures, infection or neoplasm. There is mild (less than 50%) height loss of T6-T10 vertebrae with resultant exaggeration of normal kyphosis. Prior percutaneous cement augmentation of the T11 vertebral body. Degenerative changes: No canal or foraminal stenosis. IMPRESSION: 1. No definite acute compression fracture. 2. Mild height loss of the T6-T10 vertebrae with resultant exaggeration of normal kyphosis. No visible fracture line. 3. Prior percutaneous cement augmentation of the T11 vertebral body. 4. Diffuse osseous demineralization. Signed by: Dr. Yonathan Paredes M.D. on 07/02/2018 2:40 PM Dictated By: YONATHAN EMERSON MD [id number] Transcribed By: MARSHAL on 07/02/18 1440 COPY TO: UZMA ROY MD TISSUE EXAM 2018-01-08 14:03:00 Surgical Pathology Report Case: [id number] Authorizing Provider: Norbert Bo Collected: 01/07/2018 0851 Ord ering Location: [facility] Received: 01/07/2018 1135 SERVICES Pathologist: Nick Cook MD Specimen: Wrist, Right, Synovitis. Right dorsal hand and wrist SYNOVIUM, RIGHT DORSAL HAND AND WRIST, EXCISION: - SYNOVIAL TISSUE WITH MILD LYMPHOPLASMACYTIC INFILTRATES AND FOCAL ACUTE INFLAMMATION, FIBRINOUS EXUDATE, AND REACTIVE HYPERPLASTIC CHANGES (SEE COMMENT) Signing Pathologist Direct Phone Line: [phone] signed by Nick Cook MD on 01/08/2018 at 2:03 PMThe mild lymphoplasmacytic infiltrates and reactive synovial hyperplastic changes are features suggestive of rheumatoid inflammation. Clinical correlation is recommended. [id number] tendon rupture of right handRight dorsal hand and wrist synovitis The specimen is received in a formalin-filled container and labeled with the patient's information and labeled "right wrist synovitis" and consists of multiple fragments of decker soft tissue measuring 2.5 x 2 x 1 cm in aggregate. The specimen is entirely submitted A1 and A2. CG/pl Performed. BASIC METABOLIC PANEL 2017-12-19 17:06:00 SODIUM (BEAKER) (test ngtb=477) 139 meq/L 136-145 POTASSIUM (BEAKER) (test krxo=366) 4.3 meq/L 3.5-5.1 CHLORIDE (BEAKER) (test kdwh=853) 103 meq/L 98-107 CO2 (BEAKER) (test fzxi=787) 26 meq/L 22-29 BLOOD UREA NITROGEN (BEAKER) (test ziuv=478) 17 mg/dL 7-21 CREATININE (BEAKER) (test cjod=927) 1.15 mg/dL 0.57-1.25 GLUCOSE RANDOM (BEAKER) (test dzar=512) 112 mg/dL 70-105 CALCIUM (BEAKER) (test xnat=891) 10.0 mg/dL 8.4-10.2 EGFR (BEAKER) (test zqbf=5737) 45 mL/min/1.73 sq m ESTIMATED GFR IS NOT ACCURATE CREATININE CLEARANCE IN PREDICTING GLOMERULAR FILTRATION RATE. ESTIMATED GFR IS NOT APPLICABLE FOR DIALYSIS PATIENTS. [id number] 16:53:00* Test Item Value Reference Range Comments HEMOGLOBIN (BEAKER) (test ntps=329) 12.2 GM/DL 11.2-15.7 WRIST COMPLETE RIGHT [facility] [address] [address] Patient Name: ERLIN ELIAS MR #: [id number] : 1935 Age/Sex: 82/F Req #: [id number] Adm Physician: Ordered by: DANIEL RIVERA MD Report #: [id number] Location: ER Room/Bed: Procedure: [id number] DX/WRIST COMPLETE RIGHT Exam Date: 12/05/17 Exam Time: 1030 REPORT STATUS: Signed PROCEDURE: X-RAY RIGHT WRIST, COMPLETE COMPARISON: None. INDICATIONS: SWOLLON RT. WRIST, 5TH DIGIT IS LIMP FINDINGS: Exte nsive degenerative joint space narrowing, subchondral sclerosis, and subchond ral cystic changes throughout the entire carpus, to include the distal radius , ulna, and metacarpal bases of the second through fifth digits. No acu te, displaced fracture or dislocation. Soft tissues are unremarkable. Backgro und diffuse osteopenia. CONCLUSION: No acute osseous abnormality. Extensive arthritic changes of the carpus as described above. Dictated by: Damari Montoya M.D. on 12/05/2017 at 11:20 Electronically approved by: Damari Montoya M.D. on 12/05/2017 at 11:20 Dictated By: DAMARI MONTOYA MD 1120 Transcribed By: ANA on 12/05/17 112 COPY TO: DANIEL RIVERA MD
[2018-12-16] MEDS: FAMOTIDINE 20 MG/2 ML VIAL IV SCH (18:41)
--- NOTE | 2018-12-16 19:00 | NUR ---
Received patient from day nurse, patient alert and oriented, introduced self to patient and made aware of the plans for the shift, patient's troponin repeated at [address] Foley was made aware, ekg was ordered and done, Dr. Cabral was made aware by Md Foley and we are currently waiting for any possible cardiology orders, patient denies chest pain at this time.
[2018-12-16 20:00] VITALS: BP 129/83
[2018-12-16 21:17] LABS: CREATINE KINASE MB 5.6 ng/mL (0-5.0)
[2018-12-16] MEDS: NITROGLYCERIN 2% OINT 1 GM PKT TOP SCH (22:27)
[2018-12-16] MEDS ORDERED: ENOXAPARIN SOD INJ 60 MG/0.6 ML SYR SC ONE (22:28)
--- NOTE | 2018-12-16 23:35 | NUR ---
Patient received via stretcher from ER accompanied by family members. Admission history and Initial physical assessment conducted. Patient is AAO x 3. Patient denies chest pain or any discomfort at this time. No signs of respiratory distress. Patient had no medications with her and she could not recollect her home medications. Patient's family promised to stop by patient's house and obtain a list of her current medications. Patient oriented to room, call light and plan of care.Fall precautions in place. Patient instructed to call for assistance when needed. Call light within reach.
[2018-12-16 23:45] VITALS: BP 133/82
[2018-12-17] VITALS (24 sets, daily range): BP systolic 109–156; BP diastolic 60–97
[2018-12-17] MEDS ORDERED: HYDROXYCHLOROQ200 MG PO (02:20)
[2018-12-17] MEDS ORDERED: AMLODIPINE (02:33)
[2018-12-17] MEDS ORDERED: HYDROCHLOROTHIAZIDE (02:33)
[2018-12-17] MEDS ORDERED: VALSARTAN (02:33)
--- NOTE | 2018-12-17 05:49 | NUR ---
Dr. Velma Nichols notified of elevated Troponin result---1.417. Order received to place patient in "NPO' status . MD will see patient this morning.
[2018-12-17] MEDS: FAMOTIDINE 20 MG/2 ML VIAL IV SCH (05:50)
[2018-12-17] MEDS: NITROGLYCERIN 2% OINT 1 GM PKT TOP SCH ×3 (05:50→12:52)
[2018-12-17 06:13] LABS: CHOL/HDL RATIO 2.6 (3.0-3.6)
[2018-12-17] MEDS ORDERED: SODIUM CHLORIDE 0.9% 1000ML 1,000 ML IV SCH ×2 (08:36→16:01)
--- NOTE | 2018-12-17 08:36 | NUR ---
The pt. was pale at initial rounds and denies pain or discomfort. Dr. Shi Nichols visited and spoke with the pt. about a heart cath and verbal order to not give morning lovenox.
[2018-12-17] MEDS ORDERED: ENOXAPARIN SOD INJ 60 MG/0.6 ML SYR SC SCH (09:00)
[2018-12-17] MEDS: ASPIRIN 325 MG TAB PO SCH (09:00)
[2018-12-17] MEDS: METOPROLOL TARTRATE 25 MG TAB PO SCH ×2 (09:52→17:00)
--- NOTE | 2018-12-17 10:49 | NUR ---
Consent for heart cath and others indicated procedures signed and witnessed and placed to the chart. The pt. denies needing further information concerning the procedure..
--- NOTE | 2018-12-17 12:30 | NUR ---
CM SPOKE TO PATIENT AT BEDSIDE REGARDING IMM LETTER. IMM LETTER GIVEN WITH EXPLANATION. ORIGINAL SIGNED AND PLACED IN CHART; COPY OF ORIGINAL DOCUMENT GIVEN TO PATIENT AT BEDSIDE AND PLACED IN CARE TRANSITION FOLDER. CM CONTACT INFORMATION GIVEN TO PATIENT FOR ANY NEEDS OR CONCERNS. PATIENT WITH NO FURTHER QUESTIONS.
[2018-12-17] MEDS ORDERED: ACETAMINOPHEN 325 MG TAB PO PRN (14:15)
[2018-12-17] MEDS ORDERED: MIDAZOLAM HCL 2 MG/2 ML VIAL ONE (14:20)
[2018-12-17] MEDS ORDERED: SODIUM CHLORIDE 0.9% 1000ML 1,000 ML ONE (14:20)
[2018-12-17] MEDS ORDERED: HEPARIN SOD/SOD CHLORIDE 2,000 ML ONE (14:20)
[2018-12-17] MEDS ORDERED: IOPAMIDOL 370 MG/ML 200 ML INFUS..BTL INJ ONE (14:20)
[2018-12-17] MEDS ORDERED: LIDOCAINE HCL 1% LOCAL INJ 20 ML VIAL ONE (14:20)
[2018-12-17] MEDS ORDERED: FENTANYL CITRATE/PF 100MCG/2 ML INJ ONE (14:20)
--- NOTE | 2018-12-17 14:39 | NUR ---
The pt is out of the room to farm labor contractor for procedure.
[2018-12-17 14:54] LABS: CREATINE KINASE MB 6.9 ng/mL (0-5.0)
--- NOTE | 2018-12-17 14:55 | Consultation ---
DATE OF CONSULTATION: 12/17/2018 Cardiology Consultation REASON FOR CONSULTATION: Utd-WM-edhkikoog myocardial infarction. HISTORY OF PRESENT ILLNESS: Ms. Figueroa is an 83-year-old delightful lady with past medical history of hypertension, bad osteoporosis, and family history of premature coronary artery disease, who comes in to this institution with 3-day history of stuttering episodic chest pain that has been escalating. The patient reports she was in her usual state of health up until 2 to 3 nights ago where she developed a severe heartburn sensation in the middle of her chest unrelated to activities, associated with nausea, shortness of breath, and fatigue. She was not quite sure what was going on; however, it was enough to catch her attention. However, she largely kept her symptoms to herself. She had an episode yesterday while sitting on the couch, having a cup of coffee with her neighbor at her apartment complex, but this time, she became pale, diaphoretic and had severe left arm numbness and difficulty breathing. At that point in time, EMS was called and she was taken to the hospital for further care and management. Upon checking serial cardiac biomarkers, this was noted to be positive with troponin going from a baseline of 0.285 to 0.622 to 1.417. Her last episode in the emergency was similar to her other episodes. The patient received loading dose of Plavix, aspirin as well as subcu high dose Lovenox. We had a long discussion in terms of the clinical significance of her positive cardiac biomarkers as well as other management options. The patient is agreeable for cardiac catheterization. PAST MEDICAL HISTORY: 1. Hypertension, essential. 2. Osteoporosis. PAST SURGICAL HISTORY: History of back surgery x2 back about a year ago. FAMILY HISTORY: Mother at 87, had heart problems. Father at the age of 47 with a massive heart attack. Sister at the age of 70 had type 2 diabetes, end-stage renal disease, and of a heart attack. SOCIAL HISTORY: She is a lifelong nonsmoker. Has one glass of red wine per night. Denies any illicit drug use. ALLERGIES: INCLUDE PENICILLIN. CURRENT HOME MEDICATIONS: Include aspirin 81 mg daily, Plaquenil 200 mg daily, Pepcid 20 mg b.i.d., Mobic 15 mg daily, metoprolol 25 mg b.i.d., and pravastatin 20 mg daily. REVIEW OF SYSTEMS: GENERAL: Denies any fevers, chills, or any weight changes. HEENT: Occasional headaches. No visual complaints, sore throat, or stuffiness. RESPIRATORY: Denies any pleuritic chest pain. Has occasional cough. CARDIOVASCULAR: As per HPI. GI: Denies any abdominal pain. Positive for nausea with chest pain. No bright red blood per rectum, melena, or hematemesis. HEMATOLOGY: Positive for easy bruising. No bleeding. MUSCULOSKELETAL: Positive for severe thoracic and lumbar back pain. Denies any typical claudications symptoms. No leg swelling. NEUROLOGIC: Denies any focal weakness, numbness, tingling, seizures, headache, TIA or stroke. Remainder of review of systems is negative otherwise as mentioned. PHYSICAL EXAMINATION: VITAL SIGNS: Height of 60 inches, weight of 104 pounds, BMI is 20.4. Temperature of 96.2, pulse of 68, respiratory rate of 16, blood pressure of 113/70, and O2 sat 98% on room air. GENERAL: This is a well-nourished, frail lady, who is currently in no apparent distress. HEENT: Normocephalic, atraumatic. Pupils are equal, round, and reactive. Extraocular movements are intact. Oropharynx is clear. NECK: No elevation of jugular venous pulsation. No carotid bruits. CARDIOVASCULAR: Regular rate and rhythm. Normal S1, S2. Soft 2/6 systolic murmur at left lower sternal border. LUNGS: Slight decreased bibasilar air entry, but otherwise clear to auscultation. ABDOMEN: Soft, nontender, and nondistended. Normoactive bowel sounds. No hepatosplenomegaly. BACK: Positive for kyphoscoliosis. EXTREMITIES: Warm with 2+ bilateral femoral pulses, 1 to 2+ bilateral pedal pules. NEUROLOGIC: Cranial nerves II through XII are intact. grossly nonfocal. PSYCH: Normal fluent speech. Appropriate affect. No anxiety or delusion. LABORATORY DATA: White count of 6.7, hemoglobin 13.7, hematocrit 40.8, and platelets of 254. Sodium 139, potassium 3.9, chloride 101, bicarb 25, BUN 23, creatinine 0.92, glucose of 111, and calcium of 10.6. AST 20, ALT 15, and alk phos 89. Total protein 8.4, albumin 4.4, TSH is 1.397, total cholesterol 203, LDL of 112, HDL of 79, BNP is 135. Troponin went from 0.285 to 0.622 to 1.417. EKG revealed normal sinus rhythm, inferior Q-waves, and nonspecific ST borderline depression in the inferior lateral leads. DIAGNOSES: 1. Acute vnu-MQ-pojovcxen myocardial infarction. 2. Hypertension, essential. 3. Hypercholesterolemia. 4. Positive family history of premature coronary artery disease. PLAN/RECOMMENDATIONS: 1. After extensive discussion with the patient and family, we will proceed with cardiac catheterization. Procedures, risks, and benefits explained and accepted. 2. We will continue aspirin and Plavix therapy. 3. Statin therapy. 4. Beta-arsenio therapy. 5. Check echocardiogram to evaluate left ventricular function. 6. Telemetry monitoring. 7. We will continue to monitor and follow this patient with you and change medical therapy as clinical course dictates. MD LEDA Delaney/MIGUEL /[id number]
[2018-12-17] MEDS ORDERED: BIVALRIUDIN 250 MG/VIAL VIAL IV ONE (15:17)
[2018-12-17] MEDS ORDERED: SODIUM CHLORIDE 0.9% 50ML 50 ML ONE (15:18)
[2018-12-17] MEDS ORDERED: CLOPIDOGREL BISULFATE 75 MG TAB ONE (15:18)
--- NOTE | 2018-12-17 15:45 | NUR ---
1545 Received pt from quality lab technician to #10 Identifierx2 Back to baseline orientation Rt sheath in place Ok to pull 1720pm .No sign of hematoma or bleeding. Bilateral PPx4 palpable. Resp shallow and regular. Sat 100% Ra Abdomen soft and non tender Denies necessity to defecate or urinate.Iv dry and intact rt forearm #20g No s/s infiltration. Denies CP or Sob awaiting sheath pull and transport back to floor care raiza rn
--- NOTE | 2018-12-17 16:13 | NUR ---
Nutrition Screen Note RD Recommendation for Physician: -Rec advancing to cardiac diet as medically appropriate -Pt refused oral nutrition supplements. The patient meets criteria for MODERATE protein-calorie malnutrition. Plan of Care: RD following, monitoring for tolerance and adequacy Nutrition reason for involvement: Nutrition Risk Trigger MST Primary Diagnose(s): 1. Acute uhi-KA-mmwacbebf myocardial infarction. 2. Hypertension, essential. 3. Hypercholesterolemia. PMH: hypertension, osteoporosis Ht: 62in Wt: 179.44lb BMI: 32.8kg/m2 IBW: 110lb RD Assessment: (12/17) Chart reviewed. Labs and meds reviewed. 83yo F, who was admitted for chest pain. Scheduled heart cath today. Visited pt in the room. Pt reported 15lbs of gradual weight loss over the last year. Pt contributed her weight loss to stress and unfortunate events that she had gone through within the last year. Pt had significant muscle and fat loss upon NFPA. Currently NPO for surgery. Pt wanted to eat and had good appetite. Anticipated pt able to meet nutritional need through po intake when diet is advanced. RD offered ONS but pt refused. Will continue to monitor. Please consult as needed. Current Diet: NPO Malnutrition Evaluation (12/17/2018) The patient meets criteria for MODERATE protein-calorie malnutrition. Energy intake: <75% of estimated energy requirements for >3 months Weight loss: 12.5% weight loss over a year Fat loss: Severe apparent ribs, clavicle protrusion Muscle loss: Severe protrusion of acromion process, temporal depression Supporting Evidence: Fluid accumulation: unable to evaluate Functional Status: measurably reduced Diet Education Needs Assessment: Diet education not indicated. Nutrition Care Level: mod Signed: Sabra Gentile MS, RD, LD
[2018-12-17] MEDS ORDERED: HYDROCODONE/APAP 5MG-325MG TAB PO PRN (16:15)
[2018-12-17] MEDS ORDERED: ONDANSETRON HCL INJ 2MG/ML 2ML 2 MG/ML VIAL IV PRN (16:15)
--- NOTE | 2018-12-17 17:30 | NUR ---
Assume of care from previous nurse for TR band removal. Diego PÉREZ to pull sheath. Review of VS trend, and atropine at bedside for emergent use - f
--- NOTE | 2018-12-17 17:50 | NUR ---
Dr Jennifer Nichols to see patient. VS WNL, Sheath pull underway. No immediate concerns - cgf
--- NOTE | 2018-12-17 18:05 | NUR ---
The pt. remains off unit at this time.
--- NOTE | 2018-12-17 18:10 | NUR ---
Sheath pull complete, no obvious deficits or needs at this time. IV site patent. pt to remain for an hour post hemostasis. Pt commented , " glad its over, that was a long time , at least an hour." pt reoriented to place and time. Side rails up x2 , bed low and locked , call light at bedside acquired, door open for observation. hand off to Yanet MORALES.
--- NOTE | 2018-12-17 18:15 | NUR ---
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 Noted no bleeding to sheath site.Dressing intact with Nasir patch. Bilateral femoral pulses remain x4 PD/DP. Rt Groin w/o hematoma or bleeding post 20min hold by survey technologist. Pt received 25 Fentanyl and 5 versed per [facility] report and Angiomax drip stopped at 1720pm. Iv infusing w.o s/s infiltration. Abdomen soft and non tender and denies necessity to defecate. Tolerated 120cc broth. Transported to room with Supv. Marilyn MORALES and with Zoll monitoring Monitor in SR with 1degree AV block no ectopic. Face to face report to nurse AO/cut off machine helper placed on pt and report to tele room tech. Denies CP or SOB.Left pt in care of RN bed in low position and nurse made aware of pt impulsivity. She said she would place bed alarm on pt. ds/rn
--- NOTE | 2018-12-17 19:20 | NUR ---
Patient transported back to room from agriculture laborer. Assessment done. Patient is AAO x 3. Telemetry leads placed on patient. Patient had no complaints of pain. Respirations even and non-labored. Pedal pulses present. Dressing to right groin clean, dry and intact. No signs of bleeding or drainage. Bed locked and in lowest position. Bed rails up x 2. Bed alarm activated. Patient instructed to call for assistance when needed. Call light within reach.
--- NOTE | 2018-12-17 20:24 | NUR ---
Order received from Dr. Velma Nichols for patient to resume Cardiac diet.
[2018-12-17] MEDS ORDERED: ATORVASTATIN 40 MG TAB PO SCH (21:00)
[2018-12-17] MEDS ORDERED: ATORVASTATIN 20 MG TAB PO SCH (21:00)
--- NOTE | 2018-12-17 21:25 | NUR ---
Patient appears confused and somewhat incoherent stating that " two men walked into her room". Patient re-oriented to present surrounding. Will continue to monitor.
--- NOTE | 2018-12-17 22:22 | History and Physical ---
HISTORY OF PRESENT ILLNESS: An 83-year-old white female with past medical history is positive only for hypertension, apparently she was having chest pain. She was ruled in for a yne-YN-dkjtgun elevation myocardial infarction. The patient right now is going to cardiac cath by Dr. Nichols. REVIEW OF SYSTEMS: CARDIOVASCULAR: RESPIRATORY: No shortness of breath, no cough. GASTROINTESTINAL: No nausea. No vomiting. No diarrhea. GENITOURINARY: No urinary frequency. No dysuria. ALLERGIES: LISTED IN THE CHART. SOCIAL HISTORY: She never smoked. She drinks socially. PAST MEDICAL HISTORY: Positive only for hypertension. PHYSICAL EXAMINATION: HEART: Showed regular rhythm. No murmur or added sound. LUNGS: Clear bilaterally. ABDOMEN: Soft. EXTREMITIES: Show no evidence of cyanosis or hematoma. FINAL IMPRESSION: 1. Coronary artery disease, status post xlm-BR-rdhbdru elevation myocardial infarction. 2. Hypertension. PLAN OF TREATMENT: Continue aspirin. Continue Plavix. Continue metoprolol. Continue Lipitor. The patient went for cardiac cath . MD ABBI Garcia/MIGUEL /[id number]
--- NOTE | 2018-12-17 23:32 | Operative Report ---
DATE OF PROCEDURE: 12/17/2018 SURGEON: No Nichols MD PROCEDURES PERFORMED: 1. Left heart cardiac catheterization with coronary angiography. 2. PCI with drug-eluting stent placement to the proximal LAD culprit lesion with implantation of the drug-eluting stent. INDICATION FOR PROCEDURE: An 83-year-old female with history of hypertension and hypercholesterolemia, who has been having 3-day history of escalating chest pain symptoms, typical angina with CCS 4 symptoms and had severe episodes here with positive cardiac biomarkers that are increasing in intensity with last troponin of 1.5. This is consistent with a diagnosis of a dos-ZM-jkiwytgal myocardial infarction with high risk features. DESCRIPTION OF PROCEDURE: After the risks, benefits, pros and cons to this procedure were explained, the procedure agreed to proceed. The patient brought to the cardiac catheterization laboratory on an urgent basis and the right groin was prepped and draped in the usual sterile fashion. 1% lidocaine solution was used to numb the right groin and access to the right femoral artery was obtained and 4-Slovenian femoral sheath was placed. A selective coronary angiography of the [place] left and right coronary arteries were performed with a JL4 and 3DRC diagnostic catheter. After noting high-grade, 95% proximal LAD lesion, which is the culprit artery with CHARLENE 2 flow, we decided to proceed with intervention. A 4-Slovenian femoral sheath was then upsized to a 6-Slovenian femoral sheath. IV Angiomax bolus was given for systemic anticoagulation. Utilizing an XB3.5 guiding catheter with side holes, the left main was cannulated. We took a 180 cm 0.014 Runthrough guide wire and successfully crossed the LAD lesion. We proceeded with a direct stenting strategy and placed a Resolute [place] 3.0 x 34 mm drug-eluting stent deployed at 14 atmospheres of pressure. Coronary angiography then revealed improvement from stenosis from 95% to 0% residual stenosis, CHARLENE 3 flow, and no complications. At the conclusion of case, femoral sheath remained for manual compression once her blood thickens. COMPLICATIONS: None. ESTIMATED BLOOD LOSS: Minimal. FINDINGS: 1. Left Main is angiographically normal and gives rise to an LAD and LCx branch. 2. The LAD has a 95% proximal stenosis, followed by 70% stenosis immediately adjacent to that lesion. The rest of the vessel is with mild diffuse disease 3. The LCx artery is with mild diffuse disease. 4. The RCA has mild diffuse disease INTERVENTION SUMMARY: 1. Successful intervention on the proximal 95% + 70% LAD lesion which initially had CHARLENE 2 Flow with implantation of a Resolute [place] 3.0 x 34mm MICHAEL resulting in 0% residual stenosis and CHARLENE 3 Flow PLAN/RECOMMENDATIONS: 1. Aspirin + Plavix therapy 2. Statin therapy 3. BBlocker as tolerated 4. Risk factor modification and medical therapy 5. Sheath removal with manual compression in 2hrs with 6hr bedrest afterwards 6. Overnight hospital stay. MD LEDA Delaney/MIGUEL /[id number] MTDD
[2018-12-18] VITALS: BP 134/63
[2018-12-18 04:00] VITALS: BP 140/69
[2018-12-18 05:02] VITALS: BP 134/63
[2018-12-18 06:09] LABS: BASOPHILS # (AUTO) 0.1 (0.0-0.1); EOSINOPHILS # (AUTO) 0.2 (0.0-0.4); EOSINOPHILS % 2.2 % (0.0-6.0); HEMATOCRIT 36.2 % (34.2-44.1); HEMOGLOBIN 12.4 g/dL (12.0-16.0); LYMPHOCYTES # (AUTO) 1.5 (1.0-3.2); LYMPHOCYTES % 19.8 % (18.0-39.1); MEAN CORPUSCULAR HEMOGLOBIN 33.5 pg (28-32); MEAN CORPUSCULAR HGB CONC 34.3 g/dL (31-35); MEAN CORPUSCULAR VOLUME 97.8 fL (81-99); MONOCYTES # (AUTO) 0.6 (0.2-0.8); NEUTROPHILS % 68.6 % (38.7-80.0); PLATELET COUNT 218 x10e3/uL (140-360); RED CELL DISTRIBUTION WIDTH 11.6 % (11.7-14.4)
[2018-12-18 06:31] LABS: ALANINE AMINOTRANSFERASE 13 IU/L (0-55); ALBUMIN 3.5 g/dL (3.5-5.0); ALBUMIN/GLOBULIN RATIO 1.1 (0.8-2.0); ALKALINE PHOSPHATASE 66 IU/L (40-150); ANION GAP 17.5 mmol/L (8-16); BLOOD UREA NITROGEN 21 mg/dL (7-26); BUN/CREATININE RATIO 30 (6-25); CALCIUM 9.4 mg/dL (8.4-10.2); CARBON DIOXIDE 17 mmol/L (22-29); CHLORIDE 101 mmol/L (98-107); CREATININE, SERUM 0.71 mg/dL (0.57-1.11); EST GLOMERULAR FILTRATION RATE > 60 ML/MIN (60-); POTASSIUM 3.5 mmol/L (3.5-5.1); SODIUM 132 mmol/L (136-145)
[2018-12-18 06:39] LABS: GLUCOSE 51 mg/dL (74-118)
--- NOTE | 2018-12-18 07:00 | NUR ---
The pt. reports no pain or discomfort at this time. The right groin puncture site is clean dry and intact with no evidence of bleeding or hematoma.
--- NOTE | 2018-12-18 07:19 | NUR ---
Critical lab result of glucose (51). Patient given orange juice. BS re-checked after 15 minutes. New BS level recorded as 127.
[2018-12-18 07:58] VITALS: BP 116/62
[2018-12-18] MEDS ORDERED: CLOPIDOGREL BISULFATE 75 MG TAB PO SCH (09:00)
[2018-12-18] MEDS: ASPIRIN 325 MG TAB PO SCH (09:16)
[2018-12-18] MEDS: METOPROLOL TARTRATE 25 MG TAB PO SCH (09:16)
[2018-12-18 09:25] VITALS: BP 116/62
--- NOTE | 2018-12-18 11:14 | NUR ---
Dr. Nichols called to question need for statin before discharge at the request of Dr. Manning. I spoke with Janine who will page the the REHABILITATION SERVICES COUNSELOR for clarification. CHIDI Abdi returned the call and the pt. is currently on the med.
[2018-12-18] MEDS ORDERED: PLAVIX75 MG PO (11:24)
[2018-12-18 12:19] VITALS: BP 134/73
--- NOTE | 2018-12-18 13:00 | NUR ---
The pt. has been discharged home post removal iv and providing discharge instructions to the pt. prior to discharge.
--- NOTE | 2018-12-19 13:45 | Discharge Summary ---
HOSPITAL COURSE: She is an 83-year-old female, who had past medical history positive for hypertension, came here with chest pain. She had a cardiac cath. Cardiac cath showed that she has had significant 95% stenosis 30% stenosis in the right coronary artery. The patient is asymptomatic now and going home. OBJECTIVE: VITAL SIGNS: Blood pressure is 134/73, temperature 37.4, heart rate 64 per minute, respiratory rate 17 per minute, and oxygen saturation 100%. LABORATORY DATA: BMP: Sodium 132, potassium 3.5, chloride 101, CO2 17, BUN 21, creatinine 0.71, glucose 51. CBC: White blood count 7.34, hemoglobin 12.4, hematocrit 36.2, and platelet count of . PT 13.0, INR 0.93, PTT 29.0, AST 21, ALT 13, total bilirubin 0.6, alkaline phosphatase 66. IMPRESSION: 1. Coronary artery disease, status post non-ST segment elevation myocardial infarction. 2. Hypertension. PLAN OF TREATMENT: The patient is being discharged on aspirin 325 mg daily, Plavix 75 mg daily, metoprolol 12.5 mg twice a day, Lipitor 40 mg daily. The patient is going to follow up with Dr. Nichols as an outpatient and primary care physician. Diet; low-salt and low-cholesterol diet. MD ABBI Garcia/MIGUEL /[id number]
== END 2018-12-18 13:00 | disposition home or self-care (01) | DRG 247 ==
LOC: ER 14:33 → ERHOLD 18:24 → MED/SURG2 22:57
PROVIDERS: ADMIT Internal Medicine; ATTEND Internal Medicine
PROC: 027034Z Dilation of Coronary Artery, One Artery with Drug-eluting Intraluminal Device, Percutaneous Approach (ICD-10-PCS; principal; 2018-12-16)
PROC: 4A023N7 Measurement of Cardiac Sampling and Pressure, Left Heart, Percutaneous Approach (ICD-10-PCS; 2018-12-16)
PROC: B2111ZZ Fluoroscopy of Multiple Coronary Arteries using Low Osmolar Contrast (ICD-10-PCS; 2018-12-16)
DX: I21.4 Non-ST elevation (NSTEMI) myocardial infarction (principal); E44.0 Moderate protein-calorie malnutrition; I25.10 Atherosclerotic heart disease of native coronary artery without angina pectoris; I10 Essential (primary) hypertension; E78.5 Hyperlipidemia, unspecified; Z82.49 Family history of ischemic heart disease and other diseases of the circulatory system
CPT/HCPCS: 36415; 70450; 71045; 80053; 80061; 81001; 82550; 82553; 82948; 83880; 84443; 84484; 85025; 85610; 85730; 87086; 92928; 93005; 93306; 93454; 99284; C1766; J0583; J1650; J2001; J2250; J7030; Q9967

== ENCOUNTER 2020-04-05 13:30 | Emergency (ER) | payer MEDICARE, OTHER ==
[~2020-04-05] VITALS: Ht 152.4 cm; Wt 52.6 kg
[~2020-04-05 13:30] MED LIST changes: +AMLODIPINE; +HYDROCHLOROTHIAZIDE; +HYDROXYCHLOROQ200 MG PO; +PLAVIX75 MG PO; +VALSARTAN
[2020-04-05] MEDS ORDERED: LIDOCAINE 4% PATCH TP ONE (14:15)
--- NOTE | 2020-04-05 15:35 | Emergency Department Note ---
History of Present Illnes History of Present Illness Chief Complaint: Back Pain History of Present Illness This is a 84 year old female ALMOST FELL DAY NIGHT AND HEARD A POP IN HER BACK/LEFT POSTERIOR RIBS, AND HAS HAD PAIN SINCE THEN. CLIENT REPORTS PAIN WORSENING OF THEN. Historian: Patient Arrival Mode: Car Additional Treatment OPERATIONS AND MAINTENANCE SUPERVISOR: NONE Interior Wall Assembler Required: No Radiation: Reports non-radiation Severity: moderate Onset quality: sudden Timing of current episode: constant Chronicity: new Context: Denies recent illness Relieving factors: none Exacerbating factors: none Associated symptoms: Reports denies other symptoms Treatments prior to arrival: none Past Medical/Family History Physician Review I have reviewed the patient's past medical and family history. Any updates have been documented here. Past Medical History Recent Fever: No Clinical Suspicion of Infectio: No New/Unexplained Change in Ment: No Past Medical History: Hypertension, [place], CAD, Chronic Back Pain Other Medical History: UTERINE CA OSTEOPOROSIS RHEUMATOID ARTHRITIS Past Surgical History: Hysterectomy, Back Surgery Other Surgery: RIGHT KNEE REPLACEMENT RIGHT HAND BACK SURG Social History Smoking Cessation: Never Smoker Counseling Performed: No Alcohol Use: Daily Any Illegal Drug Use: No TB Exposure/Symptoms: No Physically hurt or threatened: No Other Last Tetanus: UNKNOWN Any Pre-Existing Lines (PICC,: No Is patient up to date on immun: Yes Last Flu: UTD Last Pneumovax: UTD Review of Systems Review of Systems Constitutional: Reports no symptoms EENTM: Reports no symptoms Cardiovascular: Reports no symptoms Respiratory: Reports no symptoms Gastrointestinal: Reports no symptoms Genitourinary: Reports no symptoms Musculoskeletal: Reports as per HPI Integumentary: Reports no symptoms Neurological: Reports no symptoms Psychological: Reports no symptoms Endocrine: Reports no symptoms Hematological/Lymphatic: Reports no symptoms Physical Exam Related Data Allergies: Coded Allergies: Penicillins (Verified Allergy, Intermediate, RASH, 12/05/17) Triage Vital Signs Vital Signs Date Time Temp Pulse Resp B/P (MAP) Pulse Ox O2 Delivery O2 Flow Rate FiO2 04/05/20 13:46 97.9 71 18 171/97 98 Vital signs reviewed: Yes Physical Exam CONSTITUTIONAL Constitutional: Present well-developed, Present well-nourished HENT HENT: Present normocephalic, Present atraumatic, Present oropharynx clear/moist, Present nose normal HENT L/R: Present left ext ear normal, Present right ext ear normal EYES Eyes: Reports PERRL, Reports conjunctivae normal NECK Neck: Present ROM normal PULMONARY Pulmonary: Present effort normal, Present breath sounds normal CARDIOVASCULAR Cardiovascular: Present regular rhythm, Present heart sounds normal, Present capillary refill normal, Present normal rate GASTROINTESTINAL Abdominal: Present soft, Present nontender, Present bowel sounds normal GENITOURINARY Genitourinary: Present exam deferred SKIN Skin: Present warm, Present dry MUSCULOSKELETAL Musculoskeletal: Present other (REPRODUCIBLE TENDERNESS TO LEFT POSTEROLATERAL LOWER RIBS) NEUROLOGICAL Neurological: Present alert, Present oriented x 3, Present no gross motor or sensory deficits PSYCHOLOGICAL Psychological: Present mood/affect normal, Present judgement normal Results Imaging Imaging results reviewed: Yes Impressions Procedure: [id number] DX/RIBS UNILAT W/CXR Exam Date: Exam Time: REPORT STATUS: Signed EXAMINATION: RIBS UNILAT W/CXR INDICATION: Left rib pain COMPARISON: Chest radiograph 10/11/2019 FINDINGS: LINES/TUBES:None LUNGS:The lungs are well-inflated. Biapical pleural parenchymal thickening/scarring. No focal consolidation or pulmonary edema. PLEURA:No pleural effusion or pneumothorax. MEDIASTINUM:The cardiomediastinal silhouette appears unchanged in size and shape. Atherosclerotic calcifications of the thoracic aorta. BONES/SOFT TISSUES:Note is placed rib fractures. Unchanged appearance of kyphoplasty at multiple lower thoracic levels. ABDOMEN:No free air under the diaphragm. IMPRESSION: No displaced rib fracture. No focal consolidation or pulmonary edema. Signed by: Kimi Levy MD on 04/05/2020 3:30 PM Assessment & Plan Medical Decision Making MDM CHECK RIB SERIES R/O FX Reassessment Reassessment AL HOME WITH LIDODERM PATCHES Assessment & Plan Final Impression: (1) Rib pain on left side Depart Disposition: HOME, SELF-CARE Last Vital Signs Date Time Temp Pulse Resp B/P (MAP) Pulse Ox O2 Delivery O2 Flow Rate FiO2 04/05/20 13:46 97.9 71 18 171/97 98 Home Meds Active Scripts Pravastatin Sodium (PRAVASTATIN SODIUM) 20 Mg Tablet, 20 MG PEG HS for 30 Days Prov:JOSEFINA KOENIG MD 03/13/18 Reported Medications Clopidogrel Bisulfate* (PLAVIX) 75 Mg Tablet, 75 MG PO DAILY for 90 Days, #30 TAB 12/18/18 [amlo/randell/hctz] No Conflict Check 12/17/18 Hydroxychloroquine Sulfate (HYDROXYCHLOROQUINE SULFATE) 200 Mg Tablet, 200 MG PO DAILY 12/17/18 Discontinued Reported Medications Prednisone (PREDNISONE) 20 Mg Tab, 20 MG PO DAILY, #5 TAB 12/05/17 Meloxicam (MOBIC) 15 Mg Tablet, 15 MG PO DAILY for 7 Days 12/05/17 Discontinued Scripts Metoprolol Tartrate (LOPRESSOR) 25 Mg Tab, 25 MG PO Q12H for 30 Days, TAB Prov:JOSEFINA KOENIG MD 03/13/18 Famotidine (FAMOTIDINE) 20 Mg Tab, 20 MG PO Q12H for 30 Days, TAB Prov:JOSEFINA KOENIG MD 03/13/18 Aspirin (ASPIRIN EC) 81 Mg Tablet.dr, 81 MG PO QAM for 30 Days Prov:JOSEFINA KOENIG MD 03/13/18 Medications in the ED Lidocaine 1 ea NOW ONCE TP Last administered on 04/05/20at 15:08; Admin Dose 1 EA; Start 04/05/20 at 14:15; Stop 04/05/20 at 14:17; Status DC HARJINDER LIU MD Apr 05, 2020 15:35
== END 2020-04-05 16:33 | disposition home or self-care (01) ==
LOC: ER 13:30
DX: R07.89 Other chest pain (principal); W18.30XA Fall on same level, unspecified, initial encounter; I10 Essential (primary) hypertension; I25.10 Atherosclerotic heart disease of native coronary artery without angina pectoris; I25.2 Old myocardial infarction; Z85.42 Personal history of malignant neoplasm of other parts of uterus
CPT/HCPCS: 71101; 99282